=== PATIENT | male | born 1995 | race Hispanic/Latino ===

== ENCOUNTER 2023-08-27 18:07 | Emergency (ER) | payer BC, SELFPAY ==
--- NOTE | ~2023-08-27 | XR_ITS ---
EXAMINATION: XR elbow RT min 3V DATE: 08/27/2023 18:26 INDICATION: Left elbow pain after weight lifting TECHNIQUE: Anteroposterior, oblique and lateral views of the right elbow were obtained. COMPARISON: None. FINDINGS: Alignment is normal. No fracture or joint effusion. Joint spaces are normal. Soft tissues are unremar kable. IMPRESSION: 1. Negative right elbow radiographs. Reviewed, dictated and finalized at location A.
--- NOTE | ~2023-08-27 | XR_ITS ---
EXAMINATION: XR shoulder RT min 2V DATE: 08/27/2023 18:27 INDICATION: Right shoulder pain after weightlifting TECHNIQUE: AP internally and externally rotated, AP oblique externally rotated and transscapular Y vi ews of the right shoulder were obtained. COMPARISON: None FINDINGS: Normal alignment. No fracture. Glenohumeral joint is normal. Acromial clavicular joint space is norm al. There is however asymmetric subarticular lucency at the head of the clavicle consistent with dist al clavicular osteolysis. Soft tissues are unremarkable. 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 Reviewed, dictated and finalized at location A. 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
[2023-08-27 18:09] VITALS: BP 152/106; PULSE 85; RESP 18; TEMP 36.6; O2SAT 97
--- NOTE | 2023-08-27 18:15 | ED.GENADULT ---
HPI - General Adult General Chief complaint: Extremity Injury, Upper <Tova Grey August,N - Last Filed: 08/27/23 18:18> Stated complaint: right arm pain <Tova Grey August, - Last Filed: 08/27/23 18:18> Time Seen by Provider: 08/27/23 18:16 <Tova Grey August,N - Last Filed: 08/27/23 18:18> Focused HPI: Dylan Kerns is a 27 y/o male who presents with right arm pain. He states he was doing a push up and felt a pop and pain to his upper arm area 2 days ago. He reports he has had some pain to right shoulder area off and on. Today while at work he was doing some more repetitive movements with his right hand and started to have more shooting / tingling pain up his right arm Denies any PMhx/ denies needing anything for pain GENERAL: Well-appearing, well-nourished, and in no acute distress. HEAD: Normocephalic, atraumatic. CHEST: Clear to auscultation. ?No respiratory distress. HEART: Regular rate and rhythm.? NEURO: ?Alert and oriented x3. Patient screened in triage and initial orders placed.? ?Additional care and disposition to be based upon?diagnostic testing and treatment. <Tova Grey August, - Last Filed: 08/27/23 18:18> Related Data Home medications: Home Medications Medication Instructions Recorded Confirmed No Home Medications 08/27/23 08/27/23 <Tova Grey August, - Last Filed: 08/27/23 18:18> Allergies/adverse reactions: Allergies Allergy/AdvReac Type Severity Reaction Status Date / Time No Known Allergies Allergy Verified 08/27/23 18:56 <Tova Grey August, - Last Filed: 08/27/23 18:18> Review of Systems Review of Systems: CONSTITUTIONAL: Denies fever MUSCULOSKELETAL: Reports joint pain, and myalgia. NEUROLOGIC: Reports weakness. Denies numbness <Anitra Nur PA-C - Last Filed: 08/27/23 20:24> All systems reviewed & are unremarkable except as noted in HPI and below <Anitra Nur PA-C - Last Filed: 08/27/23 20:24> PMFSH Past Medical History Medical History: Medical History (Updated 08/27/23 @ 20:21 by Anitra Nur PA-C) No active medical problems <Tova Thompson APRN - Last Filed: 08/27/23 18:18> Social History Social History: Social History (Updated 08/27/23 @ 20:15 by Anitra Nur PA-C) Smoking status: Never smoker <Tova Thompson APRN - Last Filed: 08/27/23 18:18> Exam Narrative: GENERAL: Well-appearing, well-nourished, and in no acute distress. HEAD: Normocephalic, atraumatic. EYES: EOMI. EXTREMITIES: Normal range of motion. No edema or obvious deformity. Normal radial pulse. Normal sensation SKIN: Warm, dry, no rash. NEURO: No focal deficits. Alert and oriented x3. PSYCH: Normal mood and affect <Anitra Nur PA-C - Last Filed: 08/27/23 20:24> Course Course Emergency Course: Patient updated on his workup and agrees with plan of care <Anitra Nur PA-C - Last Filed: 08/27/23 20:24> Vital Signs Vital signs: Vital Signs Temperature 97.9 F 08/27/23 18:09 Pulse Rate 85 08/27/23 18:09 Respiratory Rate 18 08/27/23 18:09 Blood Pressure 152/106 H 08/27/23 18:09 Pulse Oximetry 97 08/27/23 18:09 Oxygen Delivery Room Air 08/27/23 18:09 Temperature 97.9 F 08/27/23 18:09 Pulse Rate 85 08/27/23 18:09 Respiratory Rate 18 08/27/23 18:09 Blood Pressure 152/106 H 08/27/23 18:09 Pulse Oximetry 97 08/27/23 18:09 Oxygen Delivery Room Air 08/27/23 18:09 <Tova Thompson, [employer] - Last Filed: 08/27/23 18:18> Vital Signs Temperature 97.9 F 08/27/23 18:09 Pulse Rate 85 08/27/23 18:09 Respiratory Rate 18 08/27/23 18:09 Blood Pressure 152/106 H 08/27/23 18:09 Pulse Oximetry 97 08/27/23 18:09 Oxygen Delivery Room Air 08/27/23 18:09 Temperature 97.9 F 08/27/23 18:09 Pulse Rate 85 08/27/23 18:09 Respiratory Rate 18 08/27/23 18:09 Blood Pressure 152/106 H 08/27/23 18:09 Pulse Oximetry 97 08/27/23 18:09 Oxygen Delivery Room
== END 2023-08-27 20:27 | disposition home or self-care (01) ==
PROVIDERS: Emergency Provider Physician Assistant
DX: S46.911A Strain of unspecified muscle, fascia and tendon at shoulder and upper arm level, right arm, initial encounter (principal); M89.511 Osteolysis, right shoulder; X50.3XXA Overexertion from repetitive movements, initial encounter; Y93.B2 Activity, push-ups, pull-ups, sit-ups
CPT/HCPCS: 73030; 73080; 99284; A4565